=== PATIENT | female | born 1990 | race Asian ===

== ENCOUNTER 2017-08-16 14:41 | Emergency (ER) | payer OTHER | END 2017-08-16 20:00 | disposition home or self-care (01) | LOC: FTE 14:41 | DX: S99.911A Unspecified injury of right ankle, initial encounter (principal); W01.0XXA Fall on same level from slipping, tripping and stumbling without subsequent striking against object, initial encounter; Y92.89 Other specified places as the place of occurrence of the external cause | CPT/HCPCS: 73610; 73610-RT; 99283-25 ==